=== PATIENT | male | born 1990 | race American Indian/Alaskan Native ===

== ENCOUNTER 2016-07-02 06:29 | Emergency (ER) | payer SELFPAY ==
[2016-07-02] MEDS ORDERED: XYLOCAINE 1% MPF 5 mL ONE (09:00)
== END 2016-07-02 10:02 | disposition home or self-care (01) ==
LOC: ED 06:29
DX: L02.92 Furuncle, unspecified (principal)
CPT/HCPCS: 87076; 87116; 87186; 99282